=== PATIENT | female | born 1940 | race Caucasian/White ===

== ENCOUNTER 2024-09-29 19:13 | Emergency (ER) | payer OTHER, SELFPAY ==
[2024-09-29 19:15] VITALS: BP 169/72
--- NOTE | 2024-09-29 19:56 | ED.GENMED ---
History of Present Illness
General
Chief Complaint: Musculo-Skeletal Complaint
Time Seen by Provider: 09/29/24 19:27
History of Present Illness
History of Present Illness:
83-year-old female presents to the emergency department upon referral from urgent care for evaluation of right elbow injury sustained on Tuesday (3d ago) after a fall. Urgent care x-rays revealed a distracted olecranon fracture, she was splinted
with a long-arm posterior splint and sling and referred to the emergency department for further evaluation. She does report significant swelling and paresthesia of the right hand and fingers.
Review of Systems
Review of Systems
Allergies reviewed?: Yes
All Other Systems: ROS reviewed and negative except as documented in HPI and ROS
Phy Exam
Physical Exam
Physical Exam:
GEN: Well appearing, NAD, WDWN
HEENT: Oral mucosa moist, no scleral icterus
Cardiac: Regular rate
Lung: No respiratory distress, no tachypnea
MSK: Right upper extremity splint maintained, Camilo wrap removed, no skin breakdown, diffuse distal right arm edema noted
Skin: Good color, no pallor or jaundice, no rashes
Neuro: AO x3, moves all extremities freely
Psych: Calm, cooperative
Course
Vital Signs
Initial and Last Documented VS:
Initial Vital Signs
Temp Pulse Resp BP Pulse Ox
98 F 67 16 169/72 98
09/29/24 19:15 09/29/24 19:15 09/29/24 19:15 09/29/24 19:15 09/29/24 19:15
Last Documented Vital Signs
Temp Pulse Resp BP Pulse Ox
98 F 67 16 169/72 98
09/29/24 19:15 09/29/24 19:15 09/29/24 19:15 09/29/24 19:15 09/29/24 19:15
MDM/Problems Addressed
MDM/Problems Addressed:
I personally reviewed the x-rays showing a moderately distracted olecranon fracture. Splint maintained, Camilo wrap removed and replaced to allow for less edema building up in the right arm. No indication for urgent intervention, outpatient
orthopedic follow-up advised and supportive care discussed
*Critical Care Note
Total Time (30-74mins, 75-104mins- exclusive of procedures): Not Applicable
ED Attending Note
-
Portions of this chart may have been created with voice recognition software.� Occasional wrong word or��sound alike� substitutions may have occurred due to the inherent limitations of voice recognition software.
Discharge Plan
Departure
Patient Disposition: Home (Routine Discharge)
Date of Disposition: 09/29/24
Time of Disposition: 19:58
Patient with high blood pressure during this ER visit?: No
Discharge Problem:
Closed fracture of right olecranon process
Instructions: Elbow Fracture, Adult ED
Referrals:
Samuel Long MD [Active] -
Activity Restrictions/Additional Instructions:
Ice often
Follow up with orthopedics as soon as possible
Interventions
Interventions:
*Risk Screen - Suicide Last Done: 09/29/24 19:15
*General Assessment Last Done: 09/29/24 19:22
*Neglect/Abuse Screening Last Done: 09/29/24 19:15
ED- Fall Risk Assessment Last Done: 09/29/24 19:22
*Nursing Disposition Last Done: 09/29/24 20:07
ED-Musculoskeletal Assessment Last Done: 09/29/24 19:22
Discharge Date and Time
Print Language: YI
== END 2024-09-29 20:47 | disposition home or self-care (01) ==
LOC: EMR 19:13
PROVIDERS: EMERGENCY PHYSICIAN Emergency Medicine; FAMILY PHYSICIAN Internal Medicine Geriatric Medicine
DX: S52.021A Displaced fracture of olecranon process without intraarticular extension of right ulna, initial encounter for closed fracture (principal); W19.XXXA Unspecified fall, initial encounter
CPT/HCPCS: 99283